=== PATIENT | male | born 1980 | race Caucasian/White ===

== ENCOUNTER 2023-06-19 11:20 | Day surgery (SDC) | payer BC ==
[~2023-06-19 11:20] MED LIST: Lactated Ringers 1,000 ML IV SCH; Sodium Chloride 0.9% 10 ML Syringe FLUSH PRN; Sodium Chloride 0.9% 10 ML Syringe FLUSH SCH
[2023-06-19] MEDS ORDERED: Propofol 200 MG/20 ML SDV ONE (12:58)
[2023-06-19] MEDS ORDERED: Midazolam 1 MG/ML 2 ML SDV ONE (12:58)
[2023-06-19] MEDS ORDERED: fentaNYL 250 MCG/5 ML SDV ONE (12:58)
[2023-06-19] MEDS ORDERED: Rocuronium 50 MG/5 ML Vial ONE (12:59)
[2023-06-19] MEDS ORDERED: Metoclopramide 10 MG/2 ML SDV ONE (12:59)
[2023-06-19] MEDS ORDERED: Ondansetron 4 MG/2 ML SDV ONE (12:59)
[2023-06-19] MEDS ORDERED: Succinylcholine 200 MG/10 ML MDV ONE (12:59)
[2023-06-19] MEDS ORDERED: Neostigmine Methylsulfate 10 MG/10 ML MDV ONE (12:59)
[2023-06-19] MEDS ORDERED: Ketorolac 30 MG/ML SDV ONE (12:59)
[2023-06-19] MEDS ORDERED: Dexmedetomidine 200 MCG/2 ML SDV ONE (13:05)
[2023-06-19] MEDS ORDERED: Dexamethasone 4 MG/ML 5 ML MDV ONE (13:07)
[2023-06-19] MEDS ORDERED: ceFAZolin 2 GM Vial ONE (13:28)
[2023-06-19] MEDS ORDERED: fentaNYL 100 MCG/2 ML SDV IVPUSH PRN (14:26)
[2023-06-19] MEDS ORDERED: HYDROmorphone 0.5 MG/0.5 ML Syringe IVPUSH PRN (14:26)
[2023-06-19] MEDS ORDERED: Lidocaine 1% 4 ML ONE (14:27)
[2023-06-19] MEDS ORDERED: Bupivacaine 0.5% 10 ML SDV ONE (14:41)
== END 2023-06-19 17:10 | disposition home or self-care (01) ==
LOC: JD.SDS 11:20
PROVIDERS: ATTEND Specialist
DX: K42.9 Umbilical hernia without obstruction or gangrene (principal); I10 Essential (primary) hypertension; G47.30 Sleep apnea, unspecified; E03.9 Hypothyroidism, unspecified; E66.9 Obesity, unspecified
CPT/HCPCS: 49591; J0330; J0690; J1100; J1885; J2250; J2405; J2704; J2710; J2765; J3010; J3490